=== PATIENT | female | born 1970 | race Caucasian/White ===

== ENCOUNTER 2019-09-03 01:03 | Emergency (ER) | payer OTHER ==
[~2019-09-03] VITALS: Ht 167.6 cm; Wt 50.0 kg
[2019-09-03 01:24] VITALS: BP 104/56
== END 2019-09-03 02:00 | disposition home or self-care (01) ==
LOC: ER 01:05
DX: M79.674 Pain in right toe(s) (principal); Z88.0 Allergy status to penicillin; Z88.1 Allergy status to other antibiotic agents
CPT/HCPCS: 99281

== ENCOUNTER 2019-11-24 08:09 | Emergency (ER) | payer OTHER ==
[~2019-11-24] VITALS: Ht 167.6 cm; Wt 62.0 kg
[2019-11-24 08:10] VITALS: BP 113/51
== END 2019-11-24 09:01 | disposition home or self-care (01) ==
LOC: ER 08:09
DX: R05 Cough (principal); Z20.828 Contact with and (suspected) exposure to other viral communicable diseases; R53.1 Weakness; R53.83 Other fatigue; Z88.0 Allergy status to penicillin; Z88.1 Allergy status to other antibiotic agents
CPT/HCPCS: 36415; 87502; 87503; 87635; 99283

== ENCOUNTER 2020-06-08 07:05 | Outpatient (CLI) | payer BC ==
[2020-06-08 07:32] LABS: BASOPHILS # (AUTO) 0.1 X10'3 (0-0.2); BASOPHILS % (AUTO) 0.5 % (0-1); EOSINOPHILS # (AUTO) 0.1 X10'3 (0-0.9); EOSINOPHILS % (AUTO) 0.5 % (0-6); HEMATOCRIT 39.4 % (35.0-45.0); LYMPHOCYTES # (AUTO) 2.2 X10'3 (1.1-4.8); LYMPHOCYTES % (AUTO) 19.2 % (21-51); MEAN CORPUSCULAR HEMOGLOBIN 31.2 PG (27.0-31.0); MEAN CORPUSCULAR VOLUME 94.7 FL (78-98); MONOCYTES # (AUTO) 0.8 X10'3 (0-0.9); MONOCYTES % (AUTO) 7.3 % (2-12); NEUTROPHILS # (AUTO) 8.2 X10'3 (1.8-7.7); NEUTROPHILS % (AUTO) 72.5 % (42-75); PLATELET COUNT 225 X10'3 (140-440); RED BLOOD COUNT 4.16 X10'6 (4.20-5.60); RED CELL DISTRIBUTION WIDTH 13.5 % (11.5-14.5); WHITE BLOOD COUNT 11.3 X10'3 (4.5-11.0)
[2020-06-08 07:37] LABS: HEMOGLOBIN A1C 5.7 % (4.5-6.2)
[2020-06-08 07:52] LABS: ALANINE AMINOTRANSFERASE 16 U/L (12-78); ALBUMIN 4.3 G/DL (3.4-5.0); ALBUMIN/GLOBULIN RATIO 1.2 (1.1-1.5); ALKALINE PHOSPHATASE 40 IU/L (46-116); ANION GAP 9 (8-16); ASPARTATE AMINO TRANSFERASE 13 U/L (10-37); BILIRUBIN,TOTAL 1.4 MG/DL (0.1-1.0); BLOOD UREA NITROGEN 14 MG/DL (7-18); BUN/CREATININE RATIO 17.3 (6.6-38.0); CALCIUM 8.8 MG/DL (8.5-10.1); CHLORIDE 103 MMOL/L (99-107); CHOL/HDL RATIO 2.1 (0.00-4.99); CHOLESTEROL 160 MG/DL (0-200); CREATININE 0.81 MG/DL (0.40-0.90); GLUCOSE 129 MG/DL (70-104); HDL CHOLESTEROL 78 MG/DL (35-60); LDL CHOLESTEROL 73 MG/DL (50-100); POTASSIUM 3.8 MMOL/L (3.5-5.1); SODIUM 139 MMOL/L (135-145); TOTAL CARBON DIOXIDE 27.2 MMOL/L (24-32); TRIGLYCERIDES 45 MG/DL (20-135); eGFR 76 ML/MIN
== END 2020-06-08 23:59 | disposition home or self-care (01) ==
LOC: LAB 07:05
PROVIDERS: ATTEND Nurse Practitioner Family
DX: Z13.220 Encounter for screening for lipoid disorders (principal); Z76.89 Persons encountering health services in other specified circumstances; Z13.0 Encounter for screening for diseases of the blood and blood-forming organs and certain disorders involving the immune mechanism; Z13.29 Encounter for screening for other suspected endocrine disorder
CPT/HCPCS: 36415; 80053; 80061; 83036; 84439; 84443; 85025

== ENCOUNTER 2022-09-25 19:49 | Observation (INO) | payer BC ==
[~2022-09-25] VITALS: Ht 162.6 cm; Wt 50.0 kg
[2022-09-25] MEDS ORDERED: LORazepam 1 MG tablet PO ONE (19:55)
--- NOTE | 2022-09-25 20:12 | NUR ---
TRIAGE COMPLETED BY SVETLANA FERRARO RN.
[2022-09-25] MEDS ORDERED: ondansetron 4mg rapidly disintigrating tab PO ONE (20:35)
[2022-09-25] MEDS ORDERED: diazepam 5mg tablet PO ONE (20:40)
[2022-09-25] MEDS ORDERED: temazepam 15mg capsule PO PRN (21:00)
[2022-09-25] MEDS ORDERED: potassium Cl 40MEQ/1/2NS 520ml 520 ML IV PRN (21:35)
[2022-09-25] MEDS ORDERED: acetaminophen 325mg tablet PO PRN (21:35)
[2022-09-25] MEDS ORDERED: magnesium 4gm in 100ml NS 100 ML IV PRN (21:35)
[2022-09-25] MEDS ORDERED: magnesium Cl slow-release 64mg tablet PO PRN (21:35)
[2022-09-25] MEDS: normal saline 1000ml 1,000 ML IV SCH (21:35)
[2022-09-25] MEDS ORDERED: potassium Cl 20 mEq SR tablet PO PRN ×2 (21:35)
[2022-09-25] MEDS ORDERED: ondansetron/PF 4mg/2ml inj IV PRN (21:35)
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
--- NOTE | 2022-09-25 22:06 | NUR ---
CALEB RN TAKING PT TO THE FLOOR. SHE IS THE RN. REPORT GIVEN.
[2022-09-25 22:10] VITALS: BP 112/66
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
--- NOTE | 2022-09-25 22:55 | NUR ---
[place] here with pts children and pts spouse
--- NOTE | 2022-09-25 23:05 | NUR ---
Pts family at bedside reviewed plan of care.
--- NOTE | 2022-09-25 23:40 | NUR ---
Family have left, Dr. Vo at bedside orders received.
--- NOTE | 2022-09-26 02:03 | NUR ---
pt sleeping at this time
[2022-09-26] MEDS: LORazepam 1 MG tablet PO PRN ×2 (04:14→17:00)
[2022-09-26] MEDS ORDERED: NO HOME MEDS (04:27)
--- NOTE | 2022-09-26 04:30 | NUR ---
pt anxious, 1 mg Ativan given.
--- NOTE | 2022-09-26 06:14 | NUR ---
report given to rec rn plan of care reviewed
--- NOTE | 2022-09-26 06:31 | NUR ---
Recieved report on patient. Informed to do one set of vitals qshift.
[2022-09-26] MEDS: normal saline 1000ml 1,000 ML IV SCH ×2 (07:35→17:35)
[2022-09-26] MEDS: K and/or MAG REPLACEMENT MC SCH ×2 (08:00→20:00)
[2022-09-26] MEDS: diazepam 5mg tablet PO PRN ×2 (10:11→17:00)
[2022-09-26] MEDS: ondansetron 4mg rapidly disintigrating tab PO PRN ×2 (10:16→17:00)
[2022-09-26 10:18] VITALS: BP 112/47
--- NOTE | 2022-09-26 18:27 | NUR ---
Patient in room CICU 2006. I have received report from HIRAL Rosenthal and had the opportunity to ask questions and assume patient care.
[2022-09-26 19:00] VITALS: BP 104/66
[2022-09-27] MEDS: normal saline 1000ml 1,000 ML IV SCH (03:35)
--- NOTE | 2022-09-27 06:03 | NUR ---
Problems reprioritized. Patient report given, questions answered & plan of care reviewed with HIRAL Rosenthal.
[2022-09-27] MEDS: K and/or MAG REPLACEMENT MC SCH (08:00)
[2022-09-27 12:20] VITALS: BP 111/66
[2022-09-27] MEDS ORDERED: ATI1T PO (12:36)
[2022-09-27] MEDS ORDERED: DIAZ2TAB3 PO (13:12)
--- NOTE | 2022-09-27 13:48 | NUR ---
Pt educated and discharged. No IVs were in patient. Pt walked self out.
== END 2022-09-27 13:40 | disposition home or self-care (01) ==
LOC: ER 19:50 → EEVIPCON 19:50 → CICU 2S 21:39
PROVIDERS: ADMIT Internal Medicine; ATTEND Internal Medicine
DX: F06.4 Anxiety disorder due to known physiological condition (principal); Z63.4 Disappearance and death of family member; Z88.0 Allergy status to penicillin
CPT/HCPCS: 99284; G0378

== ENCOUNTER 2023-10-02 07:54 | Outpatient (CLI) | payer BC ==
[~2023-10-02 07:54] MED LIST: DIAZ2TAB3 PO
[2023-10-02 09:58] LABS: BASOPHILS # (AUTO) 0.1 X10'3 (0-0.2); BASOPHILS % (AUTO) 0.5 % (0-1); EOSINOPHILS # (AUTO) 0.1 X10'3 (0-0.9); EOSINOPHILS % (AUTO) 0.6 % (0-6); HEMATOCRIT 40.5 % (35.0-45.0); HEMOGLOBIN 13.4 g/dl (12.0-16.0); LYMPHOCYTES # (AUTO) 2.3 X10'3 (1.1-4.8); LYMPHOCYTES % (AUTO) 21.1 % (21-51); MEAN CORPUSCULAR HEMOGLOBIN 31.6 PG (27.0-31.0); MEAN CORPUSCULAR HGB CONC 33.1 g/dL (33.0-36.5); MEAN CORPUSCULAR VOLUME 95.3 FL (78-98); MEAN PLATELET VOLUME 8.4 FL (7.4-10.4); MONOCYTES # (AUTO) 0.9 X10'3 (0-0.9); NEUTROPHILS # (AUTO) 7.5 X10'3 (1.8-7.7); NEUTROPHILS % (AUTO) 69.8 % (42-75); PLATELET COUNT 248 X10'3 (140-440); RED BLOOD COUNT 4.25 X10'6 (4.20-5.60); RED CELL DISTRIBUTION WIDTH 15.1 % (11.5-14.5); WHITE BLOOD COUNT 10.8 X10'3 (4.5-11.0)
[2023-10-02 12:00] LABS: ALANINE AMINOTRANSFERASE 13 U/L (12-78); ALBUMIN/GLOBULIN RATIO 1.2 (1.1-1.5); ALKALINE PHOSPHATASE 47 IU/L (46-116); ANION GAP 11 (8-16); ASPARTATE AMINO TRANSFERASE 7 U/L (10-37); BILIRUBIN,TOTAL 1.3 MG/DL (0.1-1.0); BLOOD UREA NITROGEN 10 MG/DL (7-18); BUN/CREATININE RATIO 14.7 (10.0-20.0); CALCIUM 8.8 MG/DL (8.5-10.1); CHLORIDE 105 MMOL/L (99-107); CREATININE 0.68 MG/DL (0.40-0.90); GLUCOSE 105 MG/DL (70-104); POTASSIUM 3.9 MMOL/L (3.5-5.1); SODIUM 141 MMOL/L (135-145); TOTAL CARBON DIOXIDE 25.5 MMOL/L (24-32); TOTAL PROTEIN 7.4 G/DL (6.4-8.2); eGFR > 90 ML/MIN
[2023-10-02 12:25] LABS: FREE T4 (FREE THYROXINE) 0.86 NG/DL (0.73-1.40); THYROID STIMULATING HORMONE 3.87 ulU/ml (0.34-4.50)
== END 2023-10-02 23:59 | disposition home or self-care (01) ==
LOC: LAB 07:54
PROVIDERS: ATTEND Physician Assistant
DX: Z13.0 Encounter for screening for diseases of the blood and blood-forming organs and certain disorders involving the immune mechanism (principal); N95.1 Menopausal and female climacteric states; R53.83 Other fatigue
CPT/HCPCS: 36415; 80053; 82670; 84439; 84443; 85025

== ENCOUNTER 2023-12-05 09:18 | Outpatient (CLI) | payer BC ==
[2023-12-05 09:59] LABS: ALBUMIN 3.9 G/DL (3.4-5.0); ANION GAP 9 (8-16); CALCIUM 8.9 MG/DL (8.5-10.1); CHLORIDE 105 MMOL/L (99-107); CREATININE 0.77 MG/DL (0.40-0.90); GLUCOSE 94 MG/DL (70-104); SODIUM 141 MMOL/L (135-145); TOTAL CARBON DIOXIDE 26.7 MMOL/L (24-32); eGFR 79 ML/MIN
[2023-12-05 10:01] LABS: BLOOD UREA NITROGEN 10 MG/DL (7-18)
[2023-12-05 10:19] LABS: ALANINE AMINOTRANSFERASE 18 U/L (12-78); ALKALINE PHOSPHATASE 44 IU/L (46-116); ASPARTATE AMINO TRANSFERASE 15 U/L (10-37); FREE T4 (FREE THYROXINE) 0.79 NG/DL (0.73-1.40); THYROID STIMULATING HORMONE 4.18 ulU/ml (0.34-4.50); TOTAL PROTEIN 7.8 G/DL (6.4-8.2)
== END 2023-12-05 23:59 | disposition home or self-care (01) ==
LOC: LAB 09:18
PROVIDERS: ATTEND Physician Assistant
DX: F43.10 Post-traumatic stress disorder, unspecified (principal); F43.21 Adjustment disorder with depressed mood; F41.9 Anxiety disorder, unspecified; G47.00 Insomnia, unspecified; E80.6 Other disorders of bilirubin metabolism
CPT/HCPCS: 36415; 80053; 84439; 84443

== ENCOUNTER 2024-01-05 10:31 | Emergency (ER) | payer BC ==
[~2024-01-05] VITALS: Ht 167.6 cm; Wt 52.5 kg
[2024-01-05 10:37] VITALS: BP 116/40; PULSE 105; TEMP 99.4; O2SAT 100
[2024-01-05] MEDS ORDERED: PRED20TA PO (11:16)
[2024-01-05] MEDS: dexamethasone sod phosphate 10mg/ml inj IM STA (11:16)
[2024-01-05 12:13] VITALS: RESP 14
== END 2024-01-05 12:13 | disposition home or self-care (01) ==
LOC: ER 10:32
DX: M25.512 Pain in left shoulder (principal); Z88.0 Allergy status to penicillin; Z88.1 Allergy status to other antibiotic agents; Z89.9 Acquired absence of limb, unspecified
CPT/HCPCS: 73030; 96372; 99283; J1100